=== PATIENT | male | born 1985 | race African-American/Black ===

== ENCOUNTER 2016-08-03 18:43 | Emergency (ER) | payer OTHER ==
--- NOTE | ~2016-08-03 | CT99 ---
[facility] A Service of [facility] RADIOLOGY TEXT RESULTS PATIENT: CARL REYES LOCATION: [place] : [birth year] UNIT #: [id number] AGE: [address]: CLYDE TALLEY APRN SEX: M ORDER DR: [id number] [facility]. [place], [place] [address] [id number] MR#: [id number] #: [id number] NAME: CARL REYES : 1985 SEX: M STUDY DATE/TIME: 08/03/2016 19:43 UNIT: [facility] ROOM: STUDY DESCRIPTION: CT Maxillofacial Area W Cont Attending Physician: Clyde Talley Aprn Ordering Physician: Anika Gruber P.A.-C. Primary Care Physician: Primary Care Physician No MEDICAL IMAGING REPORT This report is preliminary unless electronic signature is present EXAM CT maxillofacial with IV contrast COMPARISON October 29, 2014. INDICTIONS 31-year-old male with bilateral facial swelling for 4 days as well as bilateral facial pain. The CT exam was performed with one or more of the following radiation dose reduction techniques: automatic exposure control, adjustment of mA and/or kV according to patient size, and iterative reconstruction. FINDINGS Axial CT imaging of the maxillofacial area was performed after IV administration of 100 mL Isovue-370. Coronal reformats were constructed. No acute fractures or suspicious osseous lesions. No evidence of osteomyelitis. Detailed evaluation of the arteries of the lower neck is limited by body habitus related soft tissue attenuation. Visualized airway appears widely patent. There is thickening of the mucosa of the ethmoid air cells. There is abnormal skin thickening overlying the mandibles bilaterally and extending below the chin. Associated with the skin overlying the mid right mandible there is a 7 mm fluid-containing rim-enhancing structure, possibly representing abscess or an inflamed sebaceous cyst. There are prominent submental lymph nodes large which measures up to 1.5 cm long axis and there is a lower cervical chain lymph node on the left measuring up to 1.8 cm long axis. These findings are likely reactive. IMPRESSION 1. Abnormal skin thickening overlying the mandible bilaterally extending [facility] A Service of [facility] RADIOLOGY TEXT RESULTS PATIENT: CARL REYES LOCATION: [place] : [birth year] UNIT #: [id number] AGE: [address]: CLYDE TALLEY APRN SEX: M ORDER DR: over the chin and submental region, most in keeping with an acute cellulitis. There is a small 7 mm fluid-containing structure abutting the skin and within the adjacent subcutaneous tissues over the mid right mandible, either representing a small abscess and/or inflamed sebaceous cyst. 2. No evidence of osteomyelitis. 3. 1.5 cm left submental and 1.8 cm lower left cervical chain lymph nodes, likely reactive given cellulitis and possible abscess. 4. Thickening of the mucosa of the ethmoid air cells, of uncertain acuity. No paranasal sinus air-fluid levels. Dictated by... Jian Lo M.D. THIS IS AN ELECTRONICALLY VERIFIED REPORT Jian Lo M.D. at 08/04/2016 11:46 AM [place] TD: 08/04/2016 07:46 JOB #: [id number] MEDICAL IMAGING REPORT Page 1 of 1 COPY
[~2016-08-03 18:43] MED LIST: CLEOCIN HCL300 M1 PO; NO MEDICATIONS; NORCO1 TAB 10/3 PO
[2016-08-03 18:54] LABS: BASOPHIL# 0.1 X10e3 (0-0.3); BASOPHIL% 0.7 % (0-2.5); EOSINOPHIL# 0.5 X10e3 (0-0.7); EOSINOPHIL% 5.2 % (0.0-7.0); HEMOGLOBIN 15.1 gm/dL (13.0-16.0); LYMPHOCYTE# 1.2 X10e3 (1.0-3.5); LYMPHOCYTE% 13.3 % (17.0-45.0); MEAN CELL VOLUME 92.1 FL (83-96); MEAN CORPUSCULAR HEMOGLOBIN 30.9 PG (28-34); MEAN CORPUSCULAR HGB CONC 33.6 g/dL (30-36); MEAN PLATELET VOLUME 8.7 FL (6.5-11.5); MONOCYTE# 1.1 X10e3 (0-1.0); MONOCYTE% 11.8 % (3.0-12.0); NEUTROPHIL# 6.4 X10e3 (1.5-7.1); PLATELET COUNT 206 X10e3 (140-420); RED BLOOD COUNT 4.88 X10e (3.90-5.60); WHITE BLOOD COUNT 9.2 X10e3 (4.0-10.5)
[2016-08-03 19:00] LABS: DIFF IND NO
[2016-08-03 19:11] LABS: BUN/CREATININE RATIO 8.46; CALCIUM SERUM 8.9 mg/dL (8.4-10.2); CREATININE SERUM 1.3 mg/dL (0.6-1.4); GLOM FILT RATE Estimated 85.5 mL/min (>60); POTASSIUM 4.1 mmol/L (3.5-5.1)
== END 2016-08-03 21:50 | disposition home or self-care (01) ==
LOC: CFTX 18:43
PROVIDERS: Physician Assistant
DX: L03.211 Cellulitis of face (principal); F17.210 Nicotine dependence, cigarettes, uncomplicated; G43.909 Migraine, unspecified, not intractable, without status migrainosus
CPT/HCPCS: 70487; 80048; 85025; 96365; 96366; 99284; J1100; J1885; J3370; Q9967